=== PATIENT | male | born 1940 | race Caucasian/White ===

== ENCOUNTER 2017-06-18 11:28 | Emergency (ER) | payer MEDICARE, OTHER ==
[~2017-06-18] VITALS: Ht 185.4 cm; Wt 108.0 kg
[~2017-06-18 11:28] MED LIST: AMLO5TAB22 PO; CARV25TA PO; FENO160T2 PO; HYDR-3580 PO; LEVO.025 PO; LISI-363 PO; MAGN400C2 PO; PRAV40TA2 PO; VITA20002 PO; VITA5000 PO; WARF5 PO; Z.0.CPM
[2017-06-18 11:35] VITALS: BP 143/65; PULSE 69; RESP 18; TEMP 97.6; O2SAT 96
[2017-06-18] MEDS ORDERED: PANT20TA2 PO (12:26)
[2017-06-18] MEDS ORDERED: LEVO25TA4 PO (12:26)
[2017-06-18] MEDS ORDERED: CARV12.52 PO (12:26)
[2017-06-18] MEDS ORDERED: ATOR1TAB18 PO (12:26)
[2017-06-18] MEDS ORDERED: TRAM50TA PO (12:26)
[2017-06-18] MEDS ORDERED: FENO160T PO (12:26)
[2017-06-18] MEDS ORDERED: LISI10TA3 PO (12:26)
[2017-06-18] MEDS ORDERED: ASPI81CH37 CHEW (12:26)
--- NOTE | 2017-06-18 12:40 | PD ---
HPI Chief Complaint: Edema Time Seen by Provider: 12:23 Travel History International Travel<30 days: No Contact w/Intl Traveler<30days: No Traveled to known affect area: No History of Present Illness HPI This 77-year-old male has had swelling of both legs. 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 This has been developed after he had a knee replacement. He was put on Eliquis for 3 months. He followed up with Dr. rowe avascular surgeon and was told to come off the Eliquis and that there was nothing else to do regarding his clot. He has a history of CABG [address] Joe. He says that 3 weeks ago he was taken off of hydrochlorothiazide because he was complaining of dizziness. The dizziness did not improve so at that point they decreased his dose of carvedilol and his dizziness has improved. He does not complain of shortness of breath. He has noticed that both of his legs swell. He feels like he is walking on marbles at times. He has been told that he has neuropathy but he does not know why PFSH Past Medical History Hx Anticoagulant Therapy: No Arthritis: Yes Heart Rhythm Problems: No Cancer: No Cardiovascular Problems: Yes (HTN, CHOL) High Cholesterol: Yes Chest Pain: No Congestive Heart Failure: No Cerebrovascular Accident: No Coronary Artery Disease: Yes Diminished Hearing: No Endocrine: Yes Gastrointestinal Disorders: Yes (GERD) GERD: Yes Genitourinary: Yes (ENLARGED PROSTATE) Headaches: Yes Hepatitis: No Hiatal Hernia: No Hypertension: Yes Immune Disorder: No Kidney Stones: No Musculoskeletal: Yes (OSTEOARTHRITIS) Neurologic: Yes (PERIPHERAL NEUROPATHY BILATERAL FEET) Psychiatric: No Reproductive: No Respiratory: No Migraines: No Renal Failure: No Seizures: No Thyroid Disease: Yes Ulcer: No Tetanus Vaccination: Unknown Influenza Vaccination: No ?: Not Past Surgical History Abdominal Surgery: Yes (CHOLECYSTECTOMY 2001) AICD: No Body Medical Devices: WIRED IN STERNUM, PIN IN FOOT Cardiac Surgery: Yes (CABG 01/2001) Cholecystectomy: Yes Coronary Artery Bypass Graft: Yes Ear Surgery: No Endocrine Surgery: No Eye Surgery: No Genitourinary Surgery: No Gynecologic Surgery: No Joint Replacement: No Oral Surgery: No Pacemaker: No Other Surgery: Yes Social History Alcohol Use: No Tobacco Use: No Substance Use: No Allergies-Medications (Allergen,Severity, Reaction): Coded Allergies: gabapentin (Unverified Allergy, Severe, WEIRD FEELING, COULD NOT SLEEP, ) Reported Meds & Prescriptions Reported Meds & Active Scripts Active Reported Fenofibrate 160 Mg Tab 160 Mg PO DAILY Pantoprazole (Pantoprazole Sodium) 20 Mg Tab 20 Mg PO DAILY Levothyroxine (Levothyroxine Sodium) 25 Mcg Tab 25 Mcg PO DAILY Tramadol (Tramadol HCl) 50 Mg Tab 50 Mg PO Q6H PRN Aspirin Low Dose (Aspirin) 81 Mg Chew 81 Mg CHEW DAILY Atorvastatin (Atorvastatin Calcium) 80 Mg Tab 80 Mg PO HS Lisinopril 10 Mg Tab 10 Mg PO DAILY Carvedilol 12.5 Mg Tab 12.5 Mg PO BID Review of Systems General / Constitutional: No: Fever, Chills Eyes: No: Diploplia, Blurred Vision HENT: No: Headaches, Vertigo Cardiovascular: No: Chest Pain or Discomfort Respiratory: No: Cough, Shortness of Breath Gastrointestinal: No: Nausea, Vomiting Genitourinary: Positive: Urgency, Frequency Musculoskeletal: Positive: Edema, No: Myalgias Neurologic: No: Weakness Endocrine: No: Heat Intolerance, Cold Intolerance Hematologic/Lymphatic: No: Easy Bruising Physical Exam Narrative GENERAL: Well-developed male SKIN: Focused skin assessment warm/dry. HEAD: Atraumatic. Normocephalic. EYES: Pupils equal and round. No scleral icterus. No injection or drainage. ENT: No nasal bleeding or discharge. Mucous membranes pink and moist. NECK: Trachea midline. No JVD. CARDIOVASCULAR: Regular rate and rhythm. No murmur appreciated. RESPIRATORY: No accessory muscle use. Clear to auscultation. Breath sounds equal bilaterally. GASTROINTESTINAL: Abdomen soft, non-tender, nondistended. Hepatic and splenic margins not palpable. MUSCULOSKELETAL: No obvious deformities. No clubbing. No cyanosis. There is bilateral pedal edema. There is some mild chronic venous stasis changes NEUROLOGICAL: Awake and alert. No obvious cranial nerve deficits. Motor grossly within normal limits. Normal speech. PSYCHIATRIC: Appropriate mood and affect; insight and judgment normal. Data Data Last Documented VS Vital Signs Date Time Temp Pulse Resp B/P (MAP) Pulse Ox O2 Delivery O2 Flow Rate FiO2 06/18/17 11:35 97.6 69 18 143/65 (91) 96 Orders Orders Complete Blood Count With Diff (06/18/17 12:37) Comprehensive Metabolic Panel (06/18/17 12:37) Urinalysis - C+S If Indicated (06/18/17 12:37) Chest, Single Ap (06/18/17 12:37) B-Type Natriuretic Peptide (06/18/17 13:26) Labs Laboratory Tests Test 06/18/17 13:05 06/18/17 13:20 06/18/17 13:45 White Blood Count 4.8 TH/MM3 Red Blood Count 4.54 MIL/MM3 Hemoglobin 13.6 GM/DL Hematocrit 40.3 % Mean Corpuscular Volume 88.8 FL Mean Corpuscular Hemoglobin 29.9 PG Mean Corpuscular Hemoglobin Concent 33.7 % Red Cell Distribution Width 13.1 % Platelet Count 194 TH/MM3 Mean Platelet Volume 7.9 FL Neutrophils (%) (Auto) 63.8 % Lymphocytes (%) (Auto) 26.3 % Monocytes (%) (Auto) 6.7 % Eosinophils (%) (Auto) 2.2 % Basophils (%) (Auto) 1.0 % Neutrophils # (Auto) 3.1 TH/MM3 Lymphocytes # (Auto) 1.3 TH/MM3 Monocytes # (Auto) 0.3 TH/MM3 Eosinophils # (Auto) 0.1 TH/MM3 Basophils # (Auto) 0.0 TH/MM3 CBC Comment DIFF FINAL Differential Comment Blood Urea Nitrogen 23 MG/DL Creatinine 1.40 MG/DL Random Glucose 151 MG/DL Total Protein 7.3 GM/DL Albumin 3.4 GM/DL Calcium Level 8.7 MG/DL Alkaline Phosphatase 69 U/L Aspartate Amino Transf (AST/SGOT) 39 U/L Alanine Aminotransferase (ALT/SGPT) 54 U/L Total Bilirubin 0.7 MG/DL Sodium Level 139 MEQ/L Potassium Level 4.0 MEQ/L Chloride Level 106 MEQ/L Carbon Dioxide Level 24.1 MEQ/L Anion Gap 9 MEQ/L Estimat Glomerular Filtration Rate 49 ML/MIN Urine Collection Type CLEAN CATCH Urine Color YELLOW Urine Turbidity CLEAR Urine pH 5.5 Urine Specific [place] 1.030 Urine Protein NEG mg/dL Urine Glucose (UA) NEG mg/dL Urine Ketones NEG mg/dL Urine Occult Blood NEG Urine Nitrite NEG Urine Bilirubin NEG Urine Leukocyte Esterase TRACE Urine RBC 0-3 /hpf Urine WBC 3-5 /hpf Urine Squamous Epithelial Cells 0-5 /hpf Microscopic Urinalysis Comment CULT NOT INDICATED MDM Medical Decision Making Medical Screen Exam Complete: Yes Emergency Medical Condition: Yes Medical Record Reviewed: Yes Differential Diagnosis In his bilateral pedal edema. Differential includes hypoalbuminemia, nephrotic syndrome, cirrhosis, CHF Narrative Course Chest x-ray shows some evidence of CHF. He is not in acute respiratory distress affect is not in any respiratory distress. He will be started on Lasix 20 mg daily as well as potassium supplement Diagnosis Primary Impression: Pedal edema Scripts Potassium Chloride Microencaps (Potassium Chloride Microencaps) 10 Meq Tab 10 MEQ PO DAILY for Electrolyte Replacement, #30 TAB 0 Refills Prov: Charles Shell MD 06/18/17 Furosemide (Lasix) 20 Mg Tab 20 MG PO DAILY for 30 Days, #30 TAB 0 Refills Prov: Charles Shell MD 06/18/17 Disposition: 01 DISCHARGE HOME Condition: Stable Charles Shell MD Jun 18, 2017 12:40
--- NOTE | 2017-06-18 13:03 | RADRPT ---
EXAM DATE/TIME: 06/18/2017 12:53 [facility] COMPARISON: No previous studies available for comparison. INDICATIONS : Short of breath MEDICAL HISTORY : Hypertension. Hypercholesterolemia. SURGICAL HISTORY : CABG. ENCOUNTER: Initial ACUITY: 1 day PAIN SCORE: 09/08 LOCATION: Bilateral chest FINDINGS: A single view of the chest demonstrates the lungs to be symmetrically aerated without evidence of mas s, infiltrate or effusion. There is some prominence of the pulmonary vasculature suggestive of pulmo nary venous congestion. The heart size is moderately enlarged. There is evidence of previous cardioth oracic surgery.. Osseous structures are intact. CONCLUSION: 1. Pulmonary venous congestion. 2. Compensated cardiomegaly. Umair Griffin MD on June 18, 2017 at 13:01 Board Certified Radiologist. This report was verified electronically.
[2017-06-18 13:24] LABS: AUTOMATED NEUTROPHIL # 3.1 TH/MM3 (1.8-7.7); EOSINOPHIL # 0.1 TH/MM3 (0-0.4); EOSINOPHIL % 2.2 % (0.0-4.0); HEMATOCRIT 40.3 % (39.0-51.0); HEMO FLAGS DIFF FINAL; LYMPH % 26.3 % (9.0-44.0); LYMPHOCYTE # 1.3 TH/MM3 (1.0-4.8); MEAN CELL VOLUME 88.8 FL (80.0-100.0); MEAN CORPUSCULAR HEMOGLOBIN 29.9 PG (27.0-34.0); MEAN CORPUSCULAR HGB CONC 33.7 % (32.0-36.0); MONO % 6.7 % (0.0-8.0); NEUT % 63.8 % (16.0-70.0); PLATELET COUNT 194 TH/MM3 (150-450); RED BLOOD COUNT 4.54 MIL/MM3 (4.50-5.90); RED CELL DISTRIBUTION WIDTH 13.1 % (11.6-17.2); WHITE BLOOD COUNT 4.8 TH/MM3 (4.0-11.0)
[2017-06-18 13:36] LABS: CHLORIDE 106 MEQ/L (98-107); SODIUM (NA) 139 MEQ/L (136-145)
[2017-06-18 13:38] LABS: BLOOD, URINE NEG (NEG); GLUCOSE,URINE NEG (NEG); KETONE, URINE NEG (NEG); NITRITE,URINE NEG (NEG); PH, URINE 5.5 (5.0-8.5)
[2017-06-18 13:39] LABS: ANION GAP 9 MEQ/L (5-15); BICARBONATE 24.1 MEQ/L (21.0-32.0)
[2017-06-18 13:40] LABS: BLOOD UREA NITROGEN 23 MG/DL (7-18)
[2017-06-18 13:42] LABS: ALT (GPT) 54 U/L (12-78); AST (GOT) 39 U/L (15-37)
[2017-06-18 13:43] LABS: GLOMERULAR FILTRATION RATE 49 ML/MIN (>89)
[2017-06-18 13:44] LABS: TOTAL BILIRUBIN ADULT 0.7 MG/DL (0.2-1.0)
[2017-06-18 13:45] LABS: ALKALINE PHOSPHATASE 69 U/L (45-117)
[2017-06-18 13:45] LABS: COMMENT (UR) CULT NOT INDICATED; CULTURE IF INDICATED CULT NOT INDICATED; METHOD OF COLLECTION CLEAN CATCH; RBC, URINE 0-3 /hpf (0-3); SQUAMOUS EPITHELIAL CELL URINE 0-5 /hpf (0-5); URINE COLOR YELLOW (YELLW/STRAW)
[2017-06-18] MEDS ORDERED: FURO1TAB62 PO (14:01)
[2017-06-18] MEDS ORDERED: POTA10TA15 PO (14:01)
== END 2017-06-18 14:09 | disposition home or self-care (01) ==
LOC: PHED 11:28
DX: R60.0 Localized edema (principal); Z86.718 Personal history of other venous thrombosis and embolism; I10 Essential (primary) hypertension; K21.9 Gastro-esophageal reflux disease without esophagitis
CPT/HCPCS: 71010; 80053; 81001; 83880; 85025; 99284